=== PATIENT | female | born 2000 | race African-American/Black ===

== ENCOUNTER 2018-10-02 03:22 | Emergency (ER) | payer SELFPAY ==
[~2018-10-02] VITALS: Ht 172.7 cm; Wt 53.0 kg
[2018-10-02] MEDS ORDERED: SODIUM CHLORIDE 0.9% 1,000 ML IV ONE (03:40)
[2018-10-02] MEDS ORDERED: ONDANSETRON HCL 4MG/2ML INJ IV STA (03:40)
[2018-10-02] MEDS ORDERED: MORPHINE SULFATE 4 MG/ML CPJ (NOT FOR IM USE) IV STA (03:40)
[2018-10-02] MEDS ORDERED: TETANUS, DIPHTHERIA, PERTUSSIS VAC/PF 0.5ML (>7YR OLD) IM ONE (03:45)
[2018-10-02] MEDS ORDERED: CEFAZOLIN 1000MG PREMIX 50 ML IV ONE (03:45)
[2018-10-02 04:02] LABS: BASOPHILS % 0.9 % (0.0-2.0); EOSINOPHILS % 0.2 % (0.0-5.0); HEMATOCRIT. 41.6 % (36.0-48.0); HEMOGLOBIN. 13.5 g/dL (12.0-16.0); LYMPHOCYTES % 28.2 % (20.0-50.0); MEAN CORPUSCULAR HEMOGLOBIN 25.9 pg (28.0-32.0); MEAN CORPUSCULAR VOLUME 79.9 fL (81.0-99.0); MONOCYTES % 7.2 % (2.0-8.0); NEUTROPHILS % 63.5 % (40.0-76.0); PLATELET 245 x1000/uL (130-400); RED CELL DISTRIBUTION WIDTH 14.5 % (11.6-14.6)
[2018-10-02 04:07] LABS: CHLORIDE 108 mEq/L (98-107)
[2018-10-02 04:09] LABS: INR 1.1; PARTIAL THROMBOPLASTIN TIME 26.1 sec (23.4-31.0); PROTHROMBIN TIME 10.7 sec (9.1-11.1)
[2018-10-02 04:13] LABS: HCG SCREEN NEGATIVE
[2018-10-02] MEDS ORDERED: IOHEXOL-350 100 ML BOTTLE ONE (05:12)
[2018-10-02 08:28] VITALS: BP 123/65
== END 2018-10-02 08:33 | disposition home or self-care (01) ==
LOC: ER 03:22
DX: S41.102A Unspecified open wound of left upper arm, initial encounter (principal); F12.10 Cannabis abuse, uncomplicated; W33.01XA Accidental discharge of shotgun, initial encounter; Y93.89 Activity, other specified; Y92.89 Other specified places as the place of occurrence of the external cause; Y99.8 Other external cause status
CPT/HCPCS: 36415; 71045; 73206; 80053; 83690; 84703; 85025; 85610; 85730; 86850; 86900; 86901; 90471; 90715; 96365; 96375; 99284; J0690; J2270; J2405; J7030; Q9967; Z7610